=== PATIENT | female | born 1990 | race Caucasian/White ===

== ENCOUNTER 2018-10-26 15:21 | Emergency (ER) | payer OTHER, SELFPAY ==
[2018-10-26 15:29] VITALS: BP 155/119; PULSE 120; TEMP 36.9; O2SAT 100; BMI 26.4
--- NOTE | 2018-10-26 15:51 | PC.NURSE ---
JENARO Garnica ordered lab work, pt denied draw at this time. explained that her heart rate was elevated at 125, explained we can try water by mouth and see. made rosalva aware.
[2018-10-26 15:56] LABS: RBC Urine None Seen (0-5/HPF)
[2018-10-26] MEDS: KETOROLAC 60 MG/2 ML VIAL IM (15:58)
[2018-10-26 16:00] LABS: Amorphous Sediment Urine 1+; Bacteria Urine Many (>30); Squamous Epithelial Cell Urine 1-5 /HPF (0-5/HPF); WBC Urine 5-10/HPF (0-5/HPF)
[2018-10-26 16:01] LABS: Culture Indicated Urine Specimen Cultured
[2018-10-26 16:33] LABS: Add Manual Diff / Slide Review NO; Basophils Absolute Auto 100 /uL (0-100); Basophils Percent Auto 0.6 % (0-2); Eosinophils Absolute Auto 300 /uL (0-450); Eosinophils Percent Auto 2.6 % (2-4); Hematocrit 41.2 % (36-46); Hemoglobin 13.6 g/dL (12.0-16.0); Lymphocytes Absolute Auto 4600 /uL (1100-4500); Lymphocytes Percent Auto 36.2 % (25-40); Mean Corpuscular HGB Conc 33.2 % (30-36); Mean Corpuscular Hemoglobin 27.8 PG (26-34); Mean Corpuscular Volume 83.9 fL (80-100); Monocytes Absolute Auto 600 /uL (0-900); Neutrophils Absolute Auto 7000 /uL (1500-7000); Neutrophils Percent Auto 55.6 % (50-75); Platelet Count 176 X10^3/uL (150-400); White Blood Cell Count 12.7 X10^3/uL (4.5-11.0)
[2018-10-26 16:52] LABS: BUN Creatinine Ratio 21.7 (6-22); Blood Urea Nitrogen 13 mg/dL (7-17); Carbon Dioxide 24 mmol/L (22-32); Chloride 103 mmol/L (98-107); Estimated Glomerular Filt Rate > 60.0 mL/min (>60); Glucose 114 mg/dL (70-100); Potassium 4.8 mmol/L (3.4-5.1); Sodium 138 mmol/L (137-145)
[2018-10-26 16:53] LABS: Alanine Aminotransferase QNS IU/L (9-52); Albumin QNS g/dL (3.5-5.0); Alkaline Phosphatase QNS U/L (38-126); Aspartate Aminotransferase QNS IU/L (14-36); Bilirubin Total QNS mg/dL (0.2-1.3); HEMOLYSIS QNS (0-50); Total Protein QNS g/dL (6.3-8.2)
[2018-10-26 17:27] LABS: Albumin Globulin Ratio QNS (1.0-2.8); Globulin QNS g/dL (1.7-4.1)
--- NOTE | 2018-10-26 19:53 | ED.SKABFB ---
HPI - Skin/Abscess/Foreign Bdy <DARCY Vanegas - Last Filed: 10/26/18 19:58> General Chief complaint: Skin/Abscess/Foreign Body Stated complaint: abscess on left leg Time Seen by Provider: 10/26/18 15:27 Source: patient Mode of arrival: ambulatory Limitations: no limitations History of Present Illness HPI narrative: The patient is a 28-year-old female history of IV drug use who presents with a chief complaint of an abscess on her left leg. She states it has been approximately 1-2 weeks. Complains of increased pain. Denies any fevers. Also states she has gum disease and lost her antibiotic so she would like another 1. Denies any nausea vomiting or diarrhea. 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 Declines to give a urine sample for test unless assured that she will not have a drug test. Related Data Home Medications Medication Instructions Recorded Confirmed No Known Home Medications 10/26/18 10/26/18 Allergies Allergy/AdvReac Type Severity Reaction Status Date / Time No Known Drug Allergies Allergy Verified 10/26/18 16:54 Review of Systems <DARCY Vanegas - Last Filed: 10/26/18 19:58> Review of Systems GENERAL: Denies chills, fatigue, malaise, fever, sweats. HEENT: Denies sinus pain, ear pain, sore throat, difficulty swallowing, dizziness. RESPIRATORY: Denies dyspnea, cough, wheezing, hemoptysis, sputum. CARDIOVASCULAR: Denies chest pain, palpitations, orthopnea, edema, GASTROINTESTINAL: Denies nausea, vomiting, abdominal pain, diarrhea, constipation, melena. : Denies dysuria, frequency, incontinence, hematuria, urinary retention. MUSCULOSKELETAL: denies weakness, joint pain, or bony pain SKIN: See HPI NEUROLOGIC: Denies weakness, headache, numbness, change in speech, confusion, seizures, incoordination. PSYCHIATRIC: No concerning psychosocial issues. 12 point review of systems is negative except for those stated above PFSH <DARCY Vanegas - Last Filed: 10/26/18 19:58> Social History Smoking Status: Current every day smoker Social History Smoking Status: Current every day smoker Exam <DARCY Vanegas - Last Filed: 10/26/18 19:58> Narrative Exam Narrative: GENERAL: This is a well-nourished, well-developed patient, in no acute distress HEAD: Atraumatic. Normocephalic. No temporal or scalp tenderness. EYES: Pupils equal round and reactive. Extraocular motions intact. No scleral icterus. No injection or drainage. ENT: Nose without bleeding, purulent drainage or septal hematoma. Throat without erythema, tonsillar hypertrophy or exudate. Uvula midline. Airway patent. NECK: Trachea midline. No JVD or lymphadenopathy. Supple, nontender, no meningeal signs. CARDIOVASCULAR: Tachycardic rate and regular rhythm. RESPIRATORY: No cough. No increased respiratory effort. No accessory muscle use. EXTREMITIES: No clubbing, cyanosis, or edema. No joint tenderness, effusion, or edema noted. BACK: Nontender without deformity or crepitance. No flank tenderness. NEURO: AOx3. SKIN: 5 x 5 cm abscess in the lateral aspect of left lower leg. Overlying erythema. Noted exudate. Multiple track carvajal over arms Initial Vital Signs Initial Vital Signs: Vital Signs Temperature 98.4 F 10/26/18 15:29 Pulse Rate 120 H 10/26/18 15:29 Blood Pressure 155/119 H 10/26/18 15:29 Pulse Oximetry 100 10/26/18 15:29 <DO Kimberly Gonsalves Last Filed: 10/27/18 07:31> Initial Vital Signs Initial Vital Signs: Vital Signs Temperature 98.4 F 10/26/18 15:29 Pulse Rate 120 H 10/26/18 15:29 Blood Pressure 155/119 H 10/26/18 15:29 Pulse Oximetry 100 10/26/18 15:29 Course <DARCY Vanegas - Last Filed: 10/26/18 19:58> Orders Ordered: Discontinued Medications Ketorolac Tromethamine (Toradol) 60 mg IM NOW ONE Stop: 10/26/18 15:54 Last Admin: 10/26/18 15:58 Dose: 60 mg Vital Signs - 8 hr 10/26/18 15:29 Temperature 98.4 F Pulse Rate 120 H Blood Pressure 155/119 H Pulse Oximetry 100 <DO Kimberly Gonsalves Last Filed: 10/27/18 07:31> Orders Ordered: Discontinued Medications Ketorolac Tromethamine (Toradol) 60 mg IM NOW ONE Stop: 10/26/18 15:54 Last Admin: 10/26/18 15:58 Dose: 60 mg Vital Signs - 8 hr 10/26/18 15:29 Temperature 98.4 F Pulse Rate 120 H Blood Pressure 155/119 H Pulse Oximetry 100 MDM - Skin/Abscess/Foreign Bdy <Janette GarnicaGURPREETP- - Last Filed: 10/26/18 19:58> Lab Data Result diagrams: 10/26/18 14:20 10/26/18 14:20 Lab Results 10/26/18 10/26/18 10/26/18 Range/Units 14:20 14:20 15:34 WBC 12.7 H (4.5-11.0) X10^3/uL RBC 4.90 (4.0-5.2) X10^6/uL Hgb 13.6 (12.0-16.0) g/dL Hct 41.2 (36-46) % MCV 83.9 (80-100) fL MCH 27.8 (26-34) PG MCHC 33.2 (30-36) % RDW 14.0 (11.6-14.8) % Plt Count 176 (150-400) X10^3/uL Neut % (Auto) 55.6 (50-75) % Lymph % (Auto) 36.2 (25-40) % [place] % (Auto) 5.0 (3-14) % Eos % (Auto) 2.6 (2-4) % Baso % (Auto) 0.6 (0-2) % Neut # (Auto) 7000 (8511-6114) /uL Lymph # (Auto) 4600 H (8293-1681) /uL [place] # (Auto) 600 (0-900) /uL Eos # (Auto) 300 (0-450) /uL Baso # (Auto) 100 (0-100) /uL Sodium 138 (137-145) mmol/L Potassium 4.8 (3.4-5.1) mmol/L Chloride 103 (98-107) mmol/L Carbon Dioxide 24 (22-32) mmol/L BUN 13 (7-17) mg/dL Creatinine 0.60 (0.52-1.04) mg/dL Estimated GFR > 60.0 (>60) mL/min BUN/Creatinine Ratio 21.7 (6-22) Glucose 114 H (70-100) mg/dL Calcium 9.0 (8.4-10.2) mg/dL Total Bilirubin QNS AST QNS ALT QNS Alkaline Phosphatase QNS Total Protein QNS Albumin QNS Globulin QNS Albumin/Globulin Ratio QNS Urine RBC None seen (0-5/HPF) Urine WBC 5-10/hpf H (0-5/HPF) Ur Squamous Epith Cells 1-5 /hpf (0-5/HPF) Amorphous Sediment 1+ Urine Bacteria Many (>30) H (None) Ur Culture Indicated? Specimen cultured Point of Care Testing Test Results Negative Urine Dip Bedside Urine Glucose Negative Bedside Urine Bilirubin - Negative Bedside Urine Ketone - Negative Urine Specific [place] 1.015 Bedside Urine Occult Blood - Negative Bedside Urine pH 7.5 Bedside Urine Protein - Negative Bedside Urine Urobilinogen +/- 1mg Bedside Urine Nitrite + Positive Bedside Urine Leukocytes +/- 15 Esterase MDM Narrative Medical decision making narrative: The patient is a 28-year-old female who presents for chief complaint of an abscess. She is requesting antibiotics. On exam she is tachycardic in the 120s. She denies any recent drug use, but does not want to have a drug test. I discussed that a test should be obtained prior to antibiotic use as well as before Toradol. Thus due to her elevated heart rate in order to help rule out systemic infection, I obtained blood work, which she initially refused. I discussed at length blood work, incision and drainage, stated I wanted to put her on antibiotics. However the patient left against medical advice while I was in with another patient. Nursing at length discussed the risk of , sepsis etc. The patient signed an against Medical advice form. The patient told nursing that she did the same thing yesterday at another facility. <Beto Yeager, DO - Last Filed: 10/27/18 07:31> Lab Data Lab Results 10/26/18 10/26/18 10/26/18 Range/Units 14:20 14:20 15:34 WBC 12.7 H (4.5-11.0) X10^3/uL RBC 4.90 (4.0-5.2) X10^6/uL Hgb 13.6 (12.0-16.0) g/dL Hct 41.2 (36-46) % MCV 83.9 (80-100) fL MCH 27.8 (26-34) PG MCHC 33.2 (30-36) % RDW 14.0 (11.6-14.8) % Plt Count 176 (150-400) X10^3/uL Neut % (Auto) 55.6 (50-75) % Lymph % (Auto) 36.2 (25-40) % [place] % (Auto) 5.0 (3-14) % Eos % (Auto) 2.6 (2-4) % Baso % (Auto) 0.6 (0-2) % Neut # (Auto) 7000 (5312-0906) /uL Lymph # (Auto) 4600 H (2463-9791) /uL [place] # (Auto) 600 (0-900) /uL Eos # (Auto) 300 (0-450) /uL Baso # (Auto) 100 (0-100) /uL Sodium 138 (137-145) mmol/L Potassium 4.8 (3.4-5.1) mmol/L Chloride 103 (98-107) mmol/L Carbon Dioxide 24 (22-32) mmol/L BUN 13 (7-17) mg/dL Creatinine 0.60 (0.52-1.04) mg/dL Estimated GFR > 60.0 (>60) mL/min BUN/Creatinine Ratio 21.7 (6-22) Glucose 114 H (70-100) mg/dL Calcium 9.0 (8.4-10.2) mg/dL Total Bilirubin QNS AST QNS ALT QNS Alkaline Phosphatase QNS Total Protein QNS Albumin QNS Globulin QNS Albumin/Globulin Ratio QNS Urine RBC None seen (0-5/HPF) Urine WBC 5-10/hpf H (0-5/HPF) Ur Squamous Epith Cells 1-5 /hpf (0-5/HPF) Amorphous Sediment 1+ Urine Bacteria Many (>30) H (None) Ur Culture Indicated? Specimen cultured Point of Care Testing Test Results Negative Urine Dip Bedside Urine Glucose Negative Bedside Urine Bilirubin - Negative Bedside Urine Ketone - Negative Urine Specific [place] 1.015 Bedside Urine Occult Blood - Negative Bedside Urine pH 7.5 Bedside Urine Protein - Negative Bedside Urine Urobilinogen +/- 1mg Bedside Urine Nitrite + Positive Bedside Urine Leukocytes +/- 15 Esterase Discharge Plan Departure Patient Disposition: Left Against Medical Advice Clinical Impression: Left against medical advice, Abscess Discharge Date/Time: 10/26/18 17:41 Interventions: ED Discharge Assessment Last Done: 10/26/18 17:18 Prescriptions: No Action No Known Home Medications RF: 0 Stand Alone Forms: Against Medical Advice <Beto Yeager DO - Last Filed: 10/27/18 07:31> Cosign ED Attending Mary Attestation: I was available for consultation during this patient's emergency department encounter
== END 2018-10-26 17:41 | disposition left against medical advice (07) ==
PROVIDERS: Emergency Provider Nurse Practitioner Family
DX: Z53.21 Procedure and treatment not carried out due to patient leaving prior to being seen by health care provider (principal); L02.416 Cutaneous abscess of left lower limb
CPT/HCPCS: 36415; 80053; 81003; 81015; 81025; 85025; 87077; 87086; 87186; 96372; 99282; 99283; J1885

== ENCOUNTER 2019-04-26 19:01 | Emergency (ER) | payer OTHER, MEDICAID, SELFPAY ==
[2019-04-26 19:02] VITALS: BMI 25.7
== END 2019-04-26 20:49 | disposition left against medical advice (07) ==
PROVIDERS: Emergency Provider Emergency Medicine
DX: R10.9 Unspecified abdominal pain (principal)
CPT/HCPCS: 99281